=== PATIENT | male | born 1935 | race Caucasian/White ===

== ENCOUNTER 2017-06-19 21:56 | Emergency (ER) | payer OTHER ==
[~2017-06-19] VITALS: Ht 175.3 cm; Wt 112.0 kg
[~2017-06-19 21:56] MED LIST: ATEN-100 PO; GLUCTAB PO; LISI2.5T55 PO; LORTA5 PO; OMEP20TA PO; PERC5TAB12 PO; PRED20 PO; SIMV10TA PO; TRIA1CAP PO; WARF6 PO
[2017-06-19 21:58] VITALS: BP 148/81; PULSE 92; RESP 23; TEMP 97.6; O2SAT 100
[2017-06-19] MEDS ORDERED: OMEP20TA93 PO (22:13)
[2017-06-19] MEDS ORDERED: SIMV10TA PO (22:13)
[2017-06-19] MEDS ORDERED: PRED5TAB PO (22:13)
[2017-06-19] MEDS ORDERED: LISI2.5T3 PO (22:13)
[2017-06-19] MEDS ORDERED: GLIM4TAB PO (22:13)
[2017-06-19] MEDS ORDERED: METO25TA3 PO (22:13)
[2017-06-19] MEDS ORDERED: WARF-20 PO (22:13)
[2017-06-19] MEDS ORDERED: TRIA37.53 PO (22:13)
[2017-06-19 22:15] VITALS: O2SAT 100
[2017-06-19] MEDS ORDERED: oxyCODONE/ACETAMINOPHEN 5 MG/325 MG TAB PO ONE (22:15)
[2017-06-19] MEDS ORDERED: SODIUM CHLORIDE 0.9% FLUSH 10 ML FLUSH IVF PRN (22:15)
[2017-06-19 22:36] LABS: AUTOMATED NEUTROPHIL # 5.2 TH/MM3 (1.8-7.7); BASOPHIL # 0.1 TH/MM3 (0-0.2); BASOPHIL % 0.8 % (0.0-2.0); EOSINOPHIL # 0.2 TH/MM3 (0-0.4); HEMATOCRIT 44.4 % (39.0-51.0); HEMOGLOBIN 15.5 GM/DL (13.0-17.0); LYMPH % 30.1 % (9.0-44.0); LYMPHOCYTE # 2.7 TH/MM3 (1.0-4.8); MEAN CELL VOLUME 83.3 FL (80.0-100.0); MEAN CORPUSCULAR HEMOGLOBIN 29.1 PG (27.0-34.0); MEAN CORPUSCULAR HGB CONC 34.9 % (32.0-36.0); MEAN PLATELET VOLUME 7.5 FL (7.0-11.0); MONO % 8.6 % (0.0-8.0); MONOCYTE # 0.8 TH/MM3 (0-0.9); NEUT % 58.5 % (16.0-70.0); PLATELET COUNT 231 TH/MM3 (150-450); RED BLOOD COUNT 5.33 MIL/MM3 (4.50-5.90); RED CELL DISTRIBUTION WIDTH 14.2 % (11.6-17.2); WHITE BLOOD COUNT 8.9 TH/MM3 (4.0-11.0)
[2017-06-19 22:45] LABS: INTERNATIONAL NORMALIZED RATIO 1.7 RATIO; PROTHROMBIN TIME - PATIENT 17.1 SEC (9.8-11.6)
--- NOTE | 2017-06-19 22:50 | RADRPT ---
EXAM DATE/TIME: 06/19/2017 22:31 [facility] COMPARISON: No previous studies available for comparison. INDICATIONS : Left shoulder pain post fall. MEDICAL HISTORY : None. SURGICAL HISTORY : None. ENCOUNTER: Initial ACUITY: 3 months PAIN SCORE: 4/10 LOCATION: Left shoulder. FINDINGS: Multiple view examination of the left shoulder demonstrates no evidence of fracture or dislocation. There is normal range of motion between internal and external rotation. Bony mineralization is camille l. CONCLUSION: 1. No acute findings. [id number] osteoarthritis of the a.c. joint and shoulder joint. Adan Goodrich MD on June 19, 2017 at 22:47 Board Certified Radiologist. This report was verified electronically.
--- NOTE | 2017-06-19 22:50 | RADRPT ---
EXAM DATE/TIME: 06/19/2017 22:29 [facility] COMPARISON: No previous studies available for comparison. INDICATIONS : Right shoulder pain post fall. MEDICAL HISTORY : None. SURGICAL HISTORY : None. ENCOUNTER: Initial ACUITY: 3 months PAIN SCORE: 4/10 LOCATION: Right shoulder. FINDINGS: There is mild osteoarthritis of the right shoulder joint and right a.c. joint. No acute fracture or d islocation. CONCLUSION: 1. 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 joint. Adan Goodrich MD on June 19, 2017 at 22:44 Board Certified Radiologist. This report was verified electronically.
--- NOTE | 2017-06-19 22:52 | PD ---
HPI . Shoulder pain Chief Complaint: Neuro Symptoms/ Deficits Time Seen by Provider: 22:03 Travel History International Travel<30 days: No Contact w/Intl Traveler<30days: No Traveled to known affect area: No History of Present Illness HPI The patient's chief complaint is bilateral shoulder pain. It is atraumatic. It is exacerbated by movement. It is rated 6/10. The patient states that he awakened the day feeling like his left leg was going to give way. He was subsequently brought here by the family with a chief complaint of left-sided weakness. PFSH Past Medical History Hx Anticoagulant Therapy: Yes (Warfarin) Atrial Fibrillation: Yes Heart Rhythm Problems: Yes (? ) Cancer: No High Cholesterol: Yes Chest Pain: No Congestive Heart Failure: No Diabetes: Yes Patient Takes Glucophage: Yes Endocrine: Yes GERD: Yes Genitourinary: No Hypertension: Yes Musculoskeletal: No Neurologic: No Psychiatric: No Reproductive: No Respiratory: No Thyroid Disease: No Tetanus Vaccination: Unknown Influenza Vaccination: Yes Past Surgical History Abdominal Surgery: No Cardiac Surgery: No Ear Surgery: No Endocrine Surgery: No Eye Surgery: No Genitourinary Surgery: No Hysterectomy: Yes (HTN) Oral Surgery: No Pacemaker: No Thoracic Surgery: No Other Surgery: Yes Social History Alcohol Use: No Tobacco Use: Yes (Smokeless) Substance Use: No Allergies-Medications (Allergen,Severity, Reaction): Coded Allergies: morphine (Unverified Allergy, Intermediate, HALLUCINATIONS, 11/13/16) Reported Meds & Prescriptions Reported Meds & Active Scripts Active Reported Prednisone 5 Mg Tab 5 Mg PO DAILY Metoprolol Tartrate 25 Mg Tab 25 Mg PO DAILY Warfarin 4 Mg Tab 4 Mg PO DAILY Lisinopril 2.5 Mg Tab 2.5 Mg PO DAILY Glimepiride 4 Mg Tab 4 Mg PO DAILY Take with breakfast or first main meal Simvastatin 10 Mg Tab 10 Mg PO DAILY Omeprazole 20 Mg Tab 20 Mg PO DAILY Triamterene-Hydrochlorothiazide 37.5-25 Mg Cap 2 Cap PO DAILY Review of Systems Except as stated in HPI: all other systems reviewed are Neg General / Constitutional: No: Fever, Chills HENT: No: Headaches Cardiovascular: No: Chest Pain or Discomfort Respiratory: No: Shortness of Breath Gastrointestinal: No: Nausea, Vomiting Musculoskeletal: Positive: Arthralgias, Limited ROM Neurologic: No: Weakness, Dizziness, Syncope, Headache, Change in Mentation, Slurred Speech Physical Exam Narrative GENERAL: Awake and alert and in no acute distress. SKIN: warm/dry. Normal color and turgor. HEAD: Normocephalic. Atraumatic. EYES: Pupils equal and round. No scleral icterus. No injection or drainage. ENT: No nasal bleeding or discharge. Mucous membranes pink and moist. NECK: Trachea midline. Full range of motion without pain.. CARDIOVASCULAR: Regular rate and rhythm. He has an irregular rhythm with controlled rate at 97. RESPIRATORY: No accessory muscle use. Clear to auscultation. Breath sounds equal bilaterally. GASTROINTESTINAL: Abdomen soft. Nontender. Bowel sounds present. Nondistended. MUSCULOSKELETAL: No obvious deformities. He does have tenderness to palpation of both shoulders. The overlying skin is not red or hot. He is distally neurovascularly intact. NEUROLOGICAL: Awake and alert. He is able to close his eyes, wrinkle his forehead, smile and protrude his tongue symmetrically. His mercury recoverer strengths are full and equal. Pronator drift is negative. When asked to lift his legs up off the bed he just bends his knees with his feet still on the bed. He does this bilaterally. His muscular strength appears to be equal. PSYCHIATRIC: Appropriate mood and affect; insight and judgment normal. Data Data Last Documented VS Vital Signs Date Time Temp Pulse Resp B/P (MAP) Pulse Ox O2 Delivery O2 Flow Rate FiO2 06/19/17 22:15 100 Room Air 06/19/17 21:58 97.6 92 23 148/81 (103) Orders Orders Complete Blood Count With Diff (06/19/17 22:08) Basic Metabolic Panel (Bmp) (06/19/17 22:08) Creatine Kinase (Cpk) (06/19/17 22:08) Troponin I (06/19/17 22:08) Ct Brain W/O Iv Contrast(Rout) (06/19/17 22:08) Ecg Monitoring (06/19/17 22:08) Iv Access Insert/Monitor (06/19/17 22:08) Oximetry (06/19/17 22:08) Sodium Chloride 0.9% Flush (Ns Flush) (06/19/17 22:15) Prothrombin Time / Inr (Pt) (06/19/17 22:14) Oxycodone-Acetamin 5-325 Mg (Percocet (06/19/17 22:15) Shoulder, Complete (>2vws) (06/19/17 22:15) Shoulder, Complete (>2vws) (06/19/17 22:15) Electrocardiogram (06/19/17 ) Labs Laboratory Tests Test 06/19/17 22:25 White Blood Count 8.9 TH/MM3 Red Blood Count 5.33 MIL/MM3 Hemoglobin 15.5 GM/DL Hematocrit 44.4 % Mean Corpuscular Volume 83.3 FL Mean Corpuscular Hemoglobin 29.1 PG Mean Corpuscular Hemoglobin Concent 34.9 % Red Cell Distribution Width 14.2 % Platelet Count 231 TH/MM3 Mean Platelet Volume 7.5 FL Neutrophils (%) (Auto) 58.5 % Lymphocytes (%) (Auto) 30.1 % Monocytes (%) (Auto) 8.6 % Eosinophils (%) (Auto) 2.0 % Basophils (%) (Auto) 0.8 % Neutrophils # (Auto) 5.2 TH/MM3 Lymphocytes # (Auto) 2.7 TH/MM3 Monocytes # (Auto) 0.8 TH/MM3 Eosinophils # (Auto) 0.2 TH/MM3 Basophils # (Auto) 0.1 TH/MM3 CBC Comment DIFF FINAL Differential Comment Prothrombin Time 17.1 SEC Prothromb Time International Ratio 1.7 RATIO Blood Urea Nitrogen 18 MG/DL Creatinine 1.22 MG/DL Random Glucose 84 MG/DL Calcium Level 9.4 MG/DL Sodium Level 140 MEQ/L Potassium Level 3.8 MEQ/L Chloride Level 103 MEQ/L Carbon Dioxide Level 27.8 MEQ/L Anion Gap 9 MEQ/L Estimat Glomerular Filtration Rate 57 ML/MIN Total Creatine Kinase 117 U/L Troponin I LESS THAN 0.02 NG/ML MDM Medical Decision Making Medical Screen Exam Complete: Yes Emergency Medical Condition: Yes Medical Record Reviewed: Yes (PMH of OA with L TKR, DM, HTN, HL and AF on coumadin) Interpretation(s) EKG shows A. fib with a rate of 97. No acute ischemic changes. Differential Diagnosis Differential diagnosis of joint pain includes but is not limited to arthritis, gout, sprain/strain, fracture, dislocation, bursitis Narrative Course This patient presents to us with a chief complaint of bilateral shoulder pain and feeling like his left leg is going to give out. Chief complaint from the family is left-sided weakness. He does not have any physical signs of a stroke. Last Impressions Shoulder X-Ray 06/19/172214 Signed Impressions: Service Date/Time: Monday, June 19, 2017 22:29 - CONCLUSION: 1. 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 joint. Adan Goodrich MD Shoulder X-Ray 06/19/172214 Signed Impressions: Service Date/Time: Monday, June 19, 2017 22:31 - CONCLUSION: 1. No acute findings. [id number] osteoarthritis of the a.c. joint and shoulder joint. Adan Goodrich MD Head CT 06/19/[id number] Signed Impressions: Service Date/Time: Monday, June 19, 2017 22:58 - CONCLUSION: 1. No acute findings. 2. Age-appropriate atrophy. Jin Toledo MD The shoulder films were independently reviewed by me. The patient's pain has improved with Percocet. CBC & BMP Diagram 06/19/17 22:25 Calcium Level 9.4 trop < 0.02 I believe that this patient's symptoms are secondary to osteoarthritis. I will discharge him to home on Percocet and with instructions to follow-up with his primary care provider for continued management. Nonsteroidal anti-inflammatory agents are not a good idea because he is on Coumadin. Diagnosis Primary Impression: Left leg weakness Additional Impressions: Bilateral shoulder pain Qualified Codes: M25.511 - Pain in right shoulder; M25.512 - Pain in left shoulder; G89.29 - Other chronic pain Osteoarthritis Qualified Codes: M15.0 - Primary generalized (osteo)arthritis Patient Instructions: Arthritis (ED), General Instructions, Narcotic given in the ED Additional Instructions: See your doctor for ongoing care of your arthritis Med/Other Pt SpecificInfo: Prescription(s) given Scripts Oxycodone-Acetaminophen (Percocet) 5-325 mg Tab 1 TAB PO Q4H Y for PAIN, #12 TAB 0 Refills Prov: Delilah Wong MD 06/19/17 Disposition: 01 DISCHARGE HOME Condition: Stable Delilah Wong MD Jun 19, 2017 22:52
[2017-06-19 22:59] LABS: BICARBONATE 27.8 MEQ/L (21.0-32.0); BLOOD UREA NITROGEN 18 MG/DL (7-18); CALCIUM 9.4 MG/DL (8.5-10.1); CHLORIDE 103 MEQ/L (98-107); CREATININE 1.22 MG/DL (0.60-1.30); GLOMERULAR FILTRATION RATE 57 ML/MIN (>89); GLUCOSE,RANDOM 84 MG/DL (74-106); SODIUM (NA) 140 MEQ/L (136-145)
[2017-06-19 23:03] LABS: TROPONIN I LESS THAN 0.02 NG/ML (0.02-0.05)
--- NOTE | 2017-06-19 23:09 | RADRPT ---
EXAM DATE/TIME: 06/19/2017 22:58 [facility] COMPARISON: No previous studies available for comparison. INDICATIONS : Left sided weakness. RADIATION DOSE: 66.34 CTDIvol (mGy) MEDICAL HISTORY : Hypertension. Diabetes. SURGICAL HISTORY : None. ENCOUNTER: Initial ACUITY: 1 day PAIN SCALE: 0/10 LOCATION: cranial TECHNIQUE: Multiple contiguous axial images were obtained of the head. Using automated exposure control and adj ustment of the mA and/or kV according to patient size, radiation dose was kept as low as reasonably a chievable to obtain optimal diagnostic quality images. DICOM format image data is available electro nically for review and comparison. FINDINGS: CEREBRUM: The ventricles are normal for age. No evidence of midline shift, mass lesion, hemorrhage or acute in farction. No extra-axial fluid collections are seen. POSTERIOR FOSSA: The cerebellum and brainstem are intact. The 4th ventricle is midline. The cerebellopontine angle i s unremarkable. EXTRACRANIAL: The visualized portion of the orbits is intact. SKULL: The calvaria is intact. No evidence of skull fracture. CONCLUSION: 1. No acute findings. 2. Age-appropriate atrophy. Jin Toledo MD on June 19, 2017 at 23:06 Board Certified Radiologist. This report was verified electronically.
[2017-06-19] MEDS ORDERED: PERC5TAB12 PO (23:27)
--- NOTE | 2017-06-20 14:17 | EKG ---
Date Performed: 06/19/2017 Time Performed: 22:01:52 PTAGE: 82 years EKG: ATRIAL FIBRILLATION ABNORMAL RHYTHM ECG NO PREVIOUS TRACING DOCTOR: Matthew Osuna Interpretating Date/Time 06/20/2017 14:15:53
== END 2017-06-20 | disposition home or self-care (01) ==
LOC: NEPC 21:56
DX: R53.1 Weakness (principal); M19.012 Primary osteoarthritis, left shoulder; M19.011 Primary osteoarthritis, right shoulder; G89.29 Other chronic pain; I48.91 Unspecified atrial fibrillation; E78.00 Pure hypercholesterolemia, unspecified; E11.9 Type 2 diabetes mellitus without complications; I10 Essential (primary) hypertension; F17.290 Nicotine dependence, other tobacco product, uncomplicated
CPT/HCPCS: 70450; 73030; 80048; 82550; 84484; 85025; 85610; 93005; 99285

== ENCOUNTER 2017-10-22 16:06 | Observation (INO) ==
--- NOTE | 2017-10-22 17:00 | ED ---
HPI General Chief Complaint: Altered Mental Status Stated Complaint: Evac/Ams Time Seen by Provider: 10/22/17 16:52 History of Present Illness HPI narrative: Patient comes emergency department by EMS after being found altered by his after going to the bathroom. This is since resolved. EMS reports patient has been acting without any altered mental status. Patient states that since starting amoxicillin 5 days ago for a cyst on his anterior chest wall is had occasional blurry/double vision and trouble getting his words. He states he did not have any problems with this prior that. Patient reports that he is on Coumadin. Patient denies any head injury, headache, fevers, chest pain, shortness of breath, abdominal pain, loss change in bowel or bladder, or previous episodes like this. Patient states that he is felt more tired recently since starting the amoxicillin. Related Data Home Medications Medication Instructions Recorded Confirmed amoxicillin 500 mg PO BID 10/22/17 10/22/17 glimepiride 4 mg PO QAM 10/22/17 10/22/17 lisinopril 2.5 mg PO DAILY 10/22/17 10/22/17 metoprolol succinate 25 mg PO DAILY 10/22/17 10/22/17 omeprazole 20 mg PO DAILY 10/22/17 10/22/17 simvastatin 10 mg PO QPM 10/22/17 10/22/17 triamterene-hydrochlorothiazid 1 tab PO DAILY 10/22/17 10/22/17 warfarin 4 mg PO DAILY 10/22/17 10/22/17 Allergies Allergy/AdvReac Type Severity Reaction Status Date / Time morphine Allergy Intermediate HALLUCINATI Verified 10/22/17 19:10 ONS Review of Systems Except as stated in HPI: all other systems reviewed are negative PMFSH Medical History Medical History A-fib (Acute) Diabetes (Acute) Heart murmur (Acute) Hernia (Acute) Hypertension (Acute) Surgical History Surgical History H/O: knee surgery (Acute) Social History Social History Substance History: No History of Abuse Second Hand Smoke Exposure: No Smoking Status: Never smoker How Often Do You Have a Drink Containing Alcohol: Never Recent Travel in [facility] within the Last 8 Weeks: No Recent Out of Country Travel within the Last 8 Weeks: No Exam Narrative Exam Narrative: GENERAL: Well-developed, overly nourished, in no acute distress , and non-ill appearing. SKIN: Focused skin assessment warm and dry. HEAD: Atraumatic. Normocephalic. EYES: Pupils equal and round. EOMI. No scleral icterus. No injection or drainage. ENT: No nasal bleeding or discharge. Mucous membranes pink and moist. NECK: Trachea midline. Supple. No nuclear rigidity. CARDIOVASCULAR: Regular rate and rhythm. No murmur appreciated. RESPIRATORY: No accessory muscle use. No respiratory distress. Clear to auscultation. Breath sounds equal bilaterally. GASTROINTESTINAL: Abdomen soft, non-tender, nondistended, and no guarding. Hepatic and splenic margins not palpable. Normal bowel sounds x4. No pulsatile mass. MUSCULOSKELETAL: No obvious deformities. No clubbing. No cyanosis. No edema. Full range of motion. NEUROLOGICAL: Awake and alert. No obvious cranial nerve deficits. Motor grossly within normal limits. Normal speech. No pronator drift. Traffic Signal Technician strength 5 out of 5 and equal bilaterally. Sensation intact and equal bilateral deltoid muscles. Strength 5 out of 5 and equal bilaterally with plantar dorsiflexion. Sensation intact over first webspace in bilateral lower extremities. PSYCHIATRIC: Appropriate mood and affect; insight and judgment normal. Course Consultations Consultation #1: Discussed patient with Dr. Fitzgerald, who is agreeable to admit patient. Time: 19:00 Initial Documented Vital Signs Temperature 98.1 F 10/22/17 17:05 Pulse Rate 67 10/22/17 17:05 Respiratory Rate 19 10/22/17 17:05 Blood Pressure 186/84 H 10/22/17 17:05 Pulse Oximetry 97 10/22/17 17:05 Last Documented Vital Signs Temperature 97.6 F 10/22/17 20:00 Pulse Rate 73 10/22/17 20:00 Respiratory Rate 14 10/22/17 20:00 Blood Pressure 155/91 H 10/22/17 20:00 Pulse Oximetry 95 10/22/17 20:00 Medical Decision Making MDM Narrative Medical decision making narrative: Patient seen and examined. Initial laboratory radiological studies were ordered. IV established patient was placed on continuous cardiac monitoring. 1800 patient daughter at bedside states that patient's mother noticed the patient becoming intermittent confusion and hallucinating ongoing for the past 4 days. States today apparently was worse which is why 911 was called. Reports patient does not appear to be at baseline currently. Discussed all findings and plan of care patient is daughter. Patient is agreeable for admission. Discussed patient with Dr. Kim, who is in agreement plan of care and disposition. Discussed patient with hospitalist is agreeable to admit patient. All questions were answered. Lab Data Lab results reviewed: Yes I reviewed the patient's lab results. Result diagrams: 10/22/17 17:25 10/22/17 17:25 Lab Results 10/22/17 10/22/17 10/22/17 Range/Units 17:25 17:25 17:25 WBC 6.5 (4.0-11.0) th/mm3 RBC 5.19 (4.50-5.90) mil/mm3 Hgb 14.9 (13.0-17.0) gm/dL Hct 43.3 (39.0-51.0) % MCV 83.5 (80.0-100.0) fL MCH 28.8 (27.0-34.0) pg MCHC 34.5 (32.0-36.0) % RDW 14.3 (11.6-17.2) % Plt Count 214 (150-450) th/mm3 MPV 7.2 (7.0-11.0) fL Neut % (Auto) 68.9 (16.0-70.0) % Lymph % (Auto) 19.6 (9.0-44.0) % Elk % (Auto) 7.8 (0.0-8.0) % Eos % (Auto) 2.9 (0.0-4.0) % Baso % (Auto) 0.8 (0.0-2.0) % Neut # (Auto) 4.5 (1.8-7.7) th/mm3 Lymph # (Auto) 1.3 (1.0-4.8) th/mm3 Elk # (Auto) 0.5 (0.0-0.9) th/mm3 Eos # (Auto) 0.2 (0.0-0.4) th/mm3 Baso # (Auto) 0.1 (0.0-0.2) th/mm3 WBC Differential . Differential Comment Auto diff final PT 22.2 H (9.8-11.6) sec INR 2.2 Ratio APTT 36.2 H (24.3-30.1) sec Sodium (136-145) meq/L Potassium (3.5-5.1) meq/L Chloride (98-107) meq/L Carbon Dioxide (21.0-32.0) meq/L Anion Gap (5-15) meq/L BUN (7-18) mg/dL Creatinine (0.60-1.30) mg/dL Estimated GFR (>89) mL/min POC Glucose (68-110) mg/dl Random Glucose (74-106) mg/dL Lactic Acid 0.8 (0.4-2.0) mmol/L Calcium (8.5-10.1) mg/dL Total Bilirubin (0.2-1.0) mg/dL AST (15-37) U/L ALT (12-78) U/L Alkaline Phosphatase (45-117) U/L Ammonia (11-32) mcmol/L Total Creatine Kinase (39-308) U/L Troponin I (0.02-0.05) ng/mL B-Natriuretic Peptide (0-100) pg/mL Total Protein (6.4-8.2) g/dL Albumin (3.4-5.0) g/dL Urine Color (Yellw/Straw) Urine Clarity (Clear) Urine pH (5.0-8.5) Ur Specific Magnolia (1.002-1.035) Urine Protein (Neg-Trace) mg/dL Urine Glucose (UA) (Negative) mg/dL Urine Ketones (Negative) mg/dL Urine Occult Blood (Negative) Urine Nitrate (Negative) Urine Bilirubin (Negative) Urine Urobilinogen (Less than 2) mg/dL Ur Leukocyte Esterase (Negative) Urine RBC (0-3) /hpf Ur Squamous Epith Cells (0-5) /hpf Urine Sperm (None) /hpf Micro UA Comment Urine Culture Comments 10/22/17 10/22/17 10/22/17 Range/Units 17:25 17:25 17:25 WBC (4.0-11.0) th/mm3 RBC (4.50-5.90) mil/mm3 Hgb (13.0-17.0) gm/dL Hct (39.0-51.0) % MCV (80.0-100.0) fL MCH (27.0-34.0) pg MCHC (32.0-36.0) % RDW (11.6-17.2) % Plt Count (150-450) th/mm3 MPV (7.0-11.0) fL Neut % (Auto) (16.0-70.0) % Lymph % (Auto) (9.0-44.0) % Elk % (Auto) (0.0-8.0) % Eos % (Auto) (0.0-4.0) % Baso % (Auto) (0.0-2.0) % Neut # (Auto) (1.8-7.7) th/mm3 Lymph # (Auto) (1.0-4.8) th/mm3 Elk # (Auto) (0.0-0.9) th/mm3 Eos # (Auto) (0.0-0.4) th/mm3 Baso # (Auto) (0.0-0.2) th/mm3 WBC Differential Differential Comment PT (9.8-11.6) sec INR Ratio APTT (24.3-30.1) sec Sodium 143 (136-145) meq/L Potassium 4.1 (3.5-5.1) meq/L Chloride 106 (98-107) meq/L Carbon Dioxide 26.8 (21.0-32.0) meq/L Anion Gap 10 (5-15) meq/L BUN 19 H (7-18) mg/dL Creatinine 1.05 (0.60-1.30) mg/dL Estimated GFR 68 L (>89) mL/min POC Glucose (68-110) mg/dl Random Glucose 81 (74-106) mg/dL Lactic Acid (0.4-2.0) mmol/L Calcium 9.6 (8.5-10.1) mg/dL Total Bilirubin 0.5 (0.2-1.0) mg/dL AST 14 L (15-37) U/L ALT 15 (12-78) U/L Alkaline Phosphatase 82 (45-117) U/L Ammonia 34 H (11-32) mcmol/L Total Creatine Kinase 58 (39-308) U/L Troponin I Less than 0.02 L (0.02-0.05) ng/mL B-Natriuretic Peptide 70 (0-100) pg/mL Total Protein 7.3 (6.4-8.2) g/dL Albumin 3.4 (3.4-5.0) g/dL Urine Color (Yellw/Straw) Urine Clarity (Clear) Urine pH (5.0-8.5) Ur Specific Magnolia (1.002-1.035) Urine Protein (Neg-Trace) mg/dL Urine Glucose (UA) (Negative) mg/dL Urine Ketones (Negative) mg/dL Urine Occult Blood (Negative) Urine Nitrate (Negative) Urine Bilirubin (Negative) Urine Urobilinogen (Less than 2) mg/dL Ur Leukocyte Esterase (Negative) Urine RBC (0-3) /hpf Ur Squamous Epith Cells (0-5) /hpf Urine Sperm (None) /hpf Micro UA Comment Urine Culture Comments 10/22/17 10/22/17 Range/Units 17:43 20:33 WBC (4.0-11.0) th/mm3 RBC (4.50-5.90) mil/mm3 Hgb (13.0-17.0) gm/dL Hct (39.0-51.0) % MCV (80.0-100.0) fL MCH (27.0-34.0) pg MCHC (32.0-36.0) % RDW (11.6-17.2) % Plt Count (150-450) th/mm3 MPV (7.0-11.0) fL Neut % (Auto) (16.0-70.0) % Lymph % (Auto) (9.0-44.0) % Elk % (Auto) (0.0-8.0) % Eos % (Auto) (0.0-4.0) % Baso % (Auto) (0.0-2.0) % Neut # (Auto) (1.8-7.7) th/mm3 Lymph # (Auto) (1.0-4.8) th/mm3 Elk # (Auto) (0.0-0.9) th/mm3 Eos # (Auto) (0.0-0.4) th/mm3 Baso # (Auto) (0.0-0.2) th/mm3 WBC Differential Differential Comment PT (9.8-11.6) sec INR Ratio APTT (24.3-30.1) sec Sodium (136-145) meq/L Potassium (3.5-5.1) meq/L Chloride (98-107) meq/L Carbon Dioxide (21.0-32.0) meq/L Anion Gap (5-15) meq/L BUN (7-18) mg/dL Creatinine (0.60-1.30) mg/dL Estimated GFR (>89) mL/min POC Glucose 74 (68-110) mg/dl Random Glucose (74-106) mg/dL Lactic Acid (0.4-2.0) mmol/L Calcium (8.5-10.1) mg/dL Total Bilirubin (0.2-1.0) mg/dL AST (15-37) U/L ALT (12-78) U/L Alkaline Phosphatase (45-117) U/L Ammonia (11-32) mcmol/L Total Creatine Kinase (39-308) U/L Troponin I (0.02-0.05) ng/mL B-Natriuretic Peptide (0-100) pg/mL Total Protein (6.4-8.2) g/dL Albumin (3.4-5.0) g/dL Urine Color Yellow (Yellw/Straw) Urine Clarity Cloudy H (Clear) Urine pH 5.0 (5.0-8.5) Ur Specific Magnolia 1.019 (1.002-1.035) Urine Protein 30 H (Neg-Trace) mg/dL Urine Glucose (UA) Negative (Negative) mg/dL Urine Ketones Negative (Negative) mg/dL Urine Occult Blood Small H (Negative) Urine Nitrate Negative (Negative) Urine Bilirubin Negative (Negative) Urine Urobilinogen 2.0 H (Less than 2) mg/dL Ur Leukocyte Esterase Negative (Negative) Urine RBC 15 H (0-3) /hpf Ur Squamous Epith Cells 2 (0-5) /hpf Urine Sperm Many H (None) /hpf Micro UA Comment Culture not ind Urine Culture Comments Culture not ind Imaging Data Radiologist's impression: Chest X-Ray 10/22/17 17:00 CONCLUSION: No acute cardiopulmonary disease. Head CT 10/22/17 17:00 CONCLUSION: 1. Stable negative examination with no intracranial hemorrhage or mass effect. ECG Data Interpretation: EKG reviewed by Dr. Kim shows A. fib with ventricular rate of 59. No STEMI. Discharge Plan Discharge Disposition Patient Disposition: 30 Still Patient Discharge Details Diagnosis: TIA (transient ischemic attack), Delirium Physicians Team ED Provider: Dev Kim ED Midlevel Provider: Roney Wolfe Primary Care Provider: Aleena Demarco Attending Provider: Lyly Fitzgerald Other Providers: Akua Castro ; Armando Soriano ED Status: Left Department Discharge Information Discharge Date/Time: 10/22/17 20:21
--- NOTE | 2017-10-22 17:37 | XR ---
EXAM DATE: 10/22/2017 5:33 PM EDT AGE/SEX: 82 years / Male INDICATIONS: Dyspnea. CLINICAL DATA: This is the patient's initial encounter. Patient reports that signs and symptoms have been present for 1 day and indicates a pain score of 0/10. MEDICAL/SURGICAL HISTORY: Hypertension. Diabetes mellitus type I. None. COMPARISON: No prior exams available for comparison. FINDINGS: A single AP erect portable view the chest was obtained. This demonstrates no confluent infiltrates or effusions. The heart size is at the upper limits of normal. There is no pulmonary edema. There is an old healed right posterior rib fracture. The bony thorax is intact. CONCLUSION: No acute cardiopulmonary disease. Electronically signed by: Facundo Duran MD 10/22/2017 5:35 PM EDT
[2017-10-22 17:46] LABS: Baso # (Auto) 0.1 th/mm3 (0.0-0.2); Baso % (Auto) 0.8 % (0.0-2.0); Eos # (Auto) 0.2 th/mm3 (0.0-0.4); Eos % (Auto) 2.9 % (0.0-4.0); Hematocrit 43.3 % (39.0-51.0); Hemoglobin 14.9 gm/dL (13.0-17.0); Lymph # (Auto) 1.3 th/mm3 (1.0-4.8); Lymph % (Auto) 19.6 % (9.0-44.0); Mean Corpuscular HGB Conc 34.5 % (32.0-36.0); Mean Corpuscular Hemoglobin 28.8 pg (27.0-34.0); Mean Corpuscular Volume 83.5 fL (80.0-100.0); Mean Platelet Volume 7.2 fL (7.0-11.0); Mono # (Auto) 0.5 th/mm3 (0.0-0.9); Mono % (Auto) 7.8 % (0.0-8.0); Neut # (Auto) 4.5 th/mm3 (1.8-7.7); Neut % (Auto) 68.9 % (16.0-70.0); Platelet Count 214 th/mm3 (150-450); Red Blood Count 5.19 mil/mm3 (4.50-5.90); Red Cell Distribution Width 14.3 % (11.6-17.2); White Blood Count 6.5 th/mm3 (4.0-11.0)
--- NOTE | 2017-10-22 17:56 | CT ---
EXAM DATE: 10/22/2017 5:53 PM EDT AGE/SEX: 82 years / Male INDICATIONS: Altered mental status CLINICAL DATA: This is the patient's initial encounter. Patient reports that signs and symptoms have been present for 1 day and indicates a pain score of 0/10. MEDICAL/SURGICAL HISTORY: Hypertension. Cardiovascular disease. . orthopedic RADIATION DOSE: 56.35 CTDI (mGy) COMPARISON: [facility] [place], CT BRAIN W/O CONTRAST, 06/19/2017. . TECHNIQUE: CT of the head without contrast. Using automated exposure control and adjustment of the mA and/or kV according to patient size, radiation dose was kept as low as reasonably achievable to ob tain optimal diagnostic quality images. DICOM format image data is available electronically for revi ew and comparison. FINDINGS: Cerebrum: The ventricles are normal for age with diffuse atrophic change. No evidence of midline yonis ft, mass lesion, hemorrhage or acute infarction. No extraaxial fluid collections are seen. Posterior Fossa: The cerebellum and brainstem are intact. The 4th ventricle is midline. The cerebe llopontine angle is unremarkable. Extracranial: The visualized portion of the orbits is intact. There is a small retention cyst in the right maxillary sinus. Skull: The calvaria is intact. No evidence of skull fracture. CONCLUSION: 1. Stable negative examination with no intracranial hemorrhage or mass effect. Electronically signed by: Facundo Duran MD 10/22/2017 5:55 PM EDT
[2017-10-22 18:05] LABS: Activated Partial Thrombo Time 36.2 sec (24.3-30.1); INR 2.2 Ratio; Prothrombin Time 22.2 sec (9.8-11.6)
[2017-10-22 18:09] LABS: Albumin 3.4 g/dL (3.4-5.0); Anion Gap 10 meq/L (5-15); Aspartate Aminotransferase 14 U/L (15-37); Blood Urea Nitrogen 19 mg/dL (7-18); Calcium 9.6 mg/dL (8.5-10.1); Carbon Dioxide 26.8 meq/L (21.0-32.0); Chloride 106 meq/L (98-107); Glomerular Filtration Rate 68 mL/min (>89); Glucose,Random 81 mg/dL (74-106); Potassium 4.1 meq/L (3.5-5.1); Sodium 143 meq/L (136-145)
[2017-10-22 18:10] LABS: Alanine Aminotransferase 15 U/L (12-78)
[2017-10-22 18:13] LABS: Bilirubin,Urine Negative (Negative); Clarity,Urine Cloudy (Clear); Color,Urine Yellow (Yellw/Straw); Glucose,Urine (UA) Negative (Negative); Leukocyte Esterase,Urine Negative (Negative); Nitrite,Urine Negative (Negative); Specific Gravity,Urine 1.019 (1.002-1.035); Sperm,Urine Many /hpf; Squamous Epithelial Cell,Urine 2 /hpf (0-5)
[2017-10-22 18:14] LABS: Alkaline Phosphatase 82 U/L (45-117); Total Protein 7.3 g/dL (6.4-8.2)
[2017-10-22 18:28] LABS: Creatine Kinase 58 U/L (39-308)
[2017-10-22] MEDS ORDERED: Dextrose 50% in Water 50 ML Vial IV.PUSH PRN (19:33)
--- NOTE | 2017-10-22 19:44 | P.HP ---
History of Present Illness Service: [facility] Primary Care Physician: Aleena Demarco MD History of Present Illness: 82-year-old male with a past medical history significant for atrial fibrillation anticoagulated on Coumadin, hypertension and diabetes mellitus presents to the emergency department for the evaluation of altered mental status. The patient's provides the history. She reports that they saw his primary care doctor on which was the last time the patient was seen normal. He was prescribed amoxicillin for an infected cyst on his chest that has been present for years. The patient then developed anorexia and fatigue later that day. Per the , the patient will not eat and does not want to get out of bed. Yesterday he began having visual hallucinations thinking that someone was in the bathroom or being disoriented and confused about where he is and what floor he is on. During her interview the patient is alert and oriented to person, and place. He does not know the year. He denies any pain. No chest pain or shortness of breath. No abdominal pain. No nausea/ vomiting/diarrhea. No fevers/chills. Review of Systems All other systems reviewed negative except as stated in HPI PMFSH - History History Provided By: Patient, Family Member - Medical History Medical History: Medical History (Last Updated 10/22/17 @ 19:36 by Lyly Fitzgerald MD) A-fib Diabetes Heart murmur Hernia Hypertension - Surgical History Surgical History: Surgical History (Last Updated 10/22/17 @ 19:36 by Lyly Fitzgerald MD) H/O: knee surgery - Tobacco History Second Hand Smoke Exposure: No Smoking Status: Never smoker - Alcohol History How Often Do You Have a Drink Containing Alcohol: Never - Substance Use History Substance History: No History of Abuse - Travel History Recent Travel in the [place] Within the Last 8 Weeks: No Recent Travel Out of the Country Within the Last 8 Weeks: No - Immunization History Tetanus Immunization: Unsure Hx Influenza Vaccine This Season: Yes Medications and Allergies Active Medications: Active Medications Dextrose (D50w Vial) 50 ml IV.PUSH UNSCH PRN PRN Reason: PER HYPOGLYCEMIA PROTOCOL Glucagon (Glucagon Inj) 1 mg OTHER PRN PRN PRN Reason: for Hypoglycemia Protocol Heparin Sodium (Porcine) (Heparin Inj) 5,000 units SQ Q8H AISLINN Sodium Chloride (Ns Inj) 1,000 mls @ 70 mls/hr IV.CONT .[id number] AISLINN Insulin Human Regular (Novolin R Correctional Sugar Inj) 0 units SQ ACHS AND 3AM AISLINN; Protocol Sodium Chloride (Ns Flush) 2 ml IV.FLUSH PRN PRN PRN Reason: FLUSH AFTER USING IV ACCESS Sodium Chloride (Ns Flush) 2 ml IV.FLUSH BID AISLINN Sodium Chloride (Ns Flush) 2 ml IV.FLUSH PRN PRN PRN Reason: FLUSH AFTER USING IV ACCESS Allergies Allergy/AdvReac Type Severity Reaction Status Date / Time morphine Allergy Intermediate HALLUCINATI Verified 10/22/17 19:10 ONS Home Medications Medication Instructions Recorded Confirmed Type amoxicillin 500 mg PO BID 10/22/17 10/22/17 History glimepiride 4 mg PO QAM 10/22/17 10/22/17 History lisinopril 2.5 mg PO DAILY 10/22/17 10/22/17 History metoprolol succinate 25 mg PO DAILY 10/22/17 10/22/17 History omeprazole 20 mg PO DAILY 10/22/17 10/22/17 History simvastatin 10 mg PO QPM 10/22/17 10/22/17 History triamterene-hydrochlorothiazid 1 tab PO DAILY 10/22/17 10/22/17 History warfarin 4 mg PO DAILY 10/22/17 10/22/17 History Exam Vital signs: Vital Signs 10/22/17 17:05 10/22/17 19:12 10/22/17 19:13 Temperature 98.1 F Pulse Rate 67 Respiratory Rate 19 Blood Pressure 186/84 H Pulse Oximetry 97 98 98 Intake & Output 10/22/17 10/22/17 10/23/17 06:59 18:59 06:59 Weight 107.048 kg Narrative: Gen.: No acute distress Head: Normocephalic. Atraumatic. EENT: Pupils equal round and reactive to light. Nose without drainage. Airway intact. Throat without injection. Cardiovascular: Regular rate and irregularly irregular rhythm. 3/6 URIEL Respiratory: Lungs clear to auscultation bilaterally. No wheezes or rhonchi. Abdomen: Soft, nontender, nondistended. No peritoneal signs. Musculoskeletal: No gross deformities. No edema. Skin: No obvious rashes or erythema. Neuro: Sensory intact. Cranial nerves II through XII intact. Bilateral strength 5/5 in all extremities including hand storm window installer. Finger to nose with tremor and unable to complete task as patient not able to touch finger. Follows commands. Alert and oriented to location and self, others. Heel to pitt intact. Results - Labs CBC & Chem 7: 10/22/17 17:25 10/22/17 17:25 Labs: Laboratory Results - last 24 hr 10/22/17 10/22/17 10/22/17 17:25 17:25 17:25 WBC 6.5 RBC 5.19 Hgb 14.9 Hct 43.3 MCV 83.5 MCH 28.8 MCHC 34.5 RDW 14.3 Plt Count 214 MPV 7.2 Neut % (Auto) 68.9 Lymph % (Auto) 19.6 [place] % (Auto) 7.8 Eos % (Auto) 2.9 Baso % (Auto) 0.8 Neut # (Auto) 4.5 Lymph # (Auto) 1.3 [place] # (Auto) 0.5 Eos # (Auto) 0.2 Baso # (Auto) 0.1 WBC Differential . Differential Comment Auto diff final PT 22.2 H INR 2.2 APTT 36.2 H Sodium Potassium Chloride Carbon Dioxide Anion Gap BUN Creatinine Estimated GFR Random Glucose Lactic Acid 0.8 Calcium Total Bilirubin AST ALT Alkaline Phosphatase Ammonia Total Creatine Kinase Troponin I B-Natriuretic Peptide Total Protein Albumin Urine Color Urine Clarity Urine pH Ur Specific [place] Urine Protein Urine Glucose (UA) Urine Ketones Urine Occult Blood Urine Nitrate Urine Bilirubin Urine Urobilinogen Ur Leukocyte Esterase Urine RBC Ur Squamous Epith Cells Urine Sperm Micro UA Comment Urine Culture Comments 10/22/17 10/22/17 10/22/17 17:25 17:25 17:25 WBC RBC Hgb Hct MCV MCH MCHC RDW Plt Count MPV Neut % (Auto) Lymph % (Auto) [place] % (Auto) Eos % (Auto) Baso % (Auto) Neut # (Auto) Lymph # (Auto) [place] # (Auto) Eos # (Auto) Baso # (Auto) WBC Differential Differential Comment PT INR APTT Sodium 143 Potassium 4.1 Chloride 106 Carbon Dioxide 26.8 Anion Gap 10 BUN 19 H Creatinine 1.05 Estimated GFR 68 L Random Glucose 81 Lactic Acid Calcium 9.6 Total Bilirubin 0.5 AST 14 L ALT 15 Alkaline Phosphatase 82 Ammonia 34 H Total Creatine Kinase 58 Troponin I Less than 0.02 L B-Natriuretic Peptide 70 Total Protein 7.3 Albumin 3.4 Urine Color Urine Clarity Urine pH Ur Specific [place] Urine Protein Urine Glucose (UA) Urine Ketones Urine Occult Blood Urine Nitrate Urine Bilirubin Urine Urobilinogen Ur Leukocyte Esterase Urine RBC Ur Squamous Epith Cells Urine Sperm Micro UA Comment Urine Culture Comments 10/22/17 17:43 WBC RBC Hgb Hct MCV MCH MCHC RDW Plt Count MPV Neut % (Auto) Lymph % (Auto) [place] % (Auto) Eos % (Auto) Baso % (Auto) Neut # (Auto) Lymph # (Auto) [place] # (Auto) Eos # (Auto) Baso # (Auto) WBC Differential Differential Comment PT INR APTT Sodium Potassium Chloride Carbon Dioxide Anion Gap BUN Creatinine Estimated GFR Random Glucose Lactic Acid Calcium Total Bilirubin AST ALT Alkaline Phosphatase Ammonia Total Creatine Kinase Troponin I B-Natriuretic Peptide Total Protein Albumin Urine Color Yellow Urine Clarity Cloudy H Urine pH 5.0 Ur Specific [place] 1.019 Urine Protein 30 H Urine Glucose (UA) Negative Urine Ketones Negative Urine Occult Blood Small H Urine Nitrate Negative Urine Bilirubin Negative Urine Urobilinogen 2.0 H Ur Leukocyte Esterase Negative Urine RBC 15 H Ur Squamous Epith Cells 2 Urine Sperm Many H Micro UA Comment Culture not ind Urine Culture Comments Culture not ind - Imaging Impressions Chest X-Ray 10/22/17 17:00 CONCLUSION: No acute cardiopulmonary disease. Head CT 10/22/17 17:00 CONCLUSION: 1. Stable negative examination with no intracranial hemorrhage or mass effect. Caprini VTE Risk Assessment Caprini VTE Risk Assessment: Moderate/High Risk (score >= 2) Caprini Risk Assessment Model: Point Value = 1 Point Value = 2 Point Value = 3 Point Value = 5 Age 41-60 Minor surgery BMI > 25 kg/m2 Swollen legs Varicose veins or History of unexplained or recurrent spontaneous Oral contraceptives or hormone replacement Sepsis (< 1 month) Serious lung disease, including pneumonia (< 1 month) Abnormal pulmonary function Acute myocardial infarction Congestive heart failure (< 1 month) History of inflammatory bowel disease Medical patient at bed rest Age 61-74 Arthroscopic surgery Major open surgery (> 45 min) Laparoscopic surgery (> 45 min) Malignancy Confined to bed (> 72 hours) Immobilizing plaster cast Central venous access Age >= 75 History of VTE Family history of VTE Factor V Leiden Prothrombin [id number] Lupus anticoagulant Anticardiolipin antibodies Elevated serum homocysteine Heparin-induced thrombocytopenia Other congenital or acquired thrombophilia Stroke (< 1 month) Elective arthroplasty Hip, pelvis, or leg fracture Acute spinal cord injury (< 1 month) Prophylaxis Regimen: Total Risk Factor Score Risk Level Prophylaxis Regimen 0-1 Low Early ambulation 2 Moderate Order ONE of the following: *Sequential Compression Device (SCD) *Heparin 5000 units SQ BID 3-4 Higher Order ONE of the following medications: *Heparin 5000 units SQ TID *Enoxaparin/Lovenox 40 mg SQ daily (WT < 150 kg, CrCl > 30 mL/min) *Enoxaparin/Lovenox 30 mg SQ daily (WT < 150 kg, CrCl > 10-29 mL/min) *Enoxaparin/Lovenox 30 mg SQ BID (WT < 150 kg, CrCl > 30 mL/min) AND/OR *Sequential Compression Device (SCD) 5 or more Highest Order ONE of the following medications: *Heparin 5000 units SQ TID (Preferred with Epidurals) *Enoxaparin/Lovenox 40 mg SQ daily (WT < 150 kg, CrCl > 30 mL/min) *Enoxaparin/Lovenox 30 mg SQ daily (WT < 150 kg, CrCl > 10-29 mL/min) *Enoxaparin/Lovenox 30 mg SQ BID (WT < 150 kg, CrCl > 30 mL/min) AND *Sequential Compression Device (SCD) Assessment and Plan - Plan Assessment/plan: 1. Ischemic stroke versus TIA CT head negative for acute process MRI/MRA pending Carotid ultrasound pending Patient with neurologic symptoms at this time Neurology consulted, appreciate recommendations Neuro checks N.p.o. Aspirin 2. Atrial fibrillation Continue anticoagulation with warfarin Continue home metoprolol 3. Hypertension Permissive hypertension Resume antihypertensives if needed 4. Diabetes mellitus Holding home antihyperglycemic Sliding-scale insulin Monitor blood glucose FEN N.p.o. NS at 70 cc/hour Electrolytes: Monitor and replete as needed Coumadin
[2017-10-22] MEDS ORDERED: Aspirin 300 MG Supp RECTAL ONE (20:15)
[2017-10-22] MEDS: Insulin NovoLIN Regular Correctional Sugar Inj SQ SCH (20:45)
[2017-10-22] MEDS: Sod Chloride 0.9% Inj 1,000 ML IV.CONT SCH (21:01)
[2017-10-22] MEDS: Heparin - SQ 10,000 UNITS/ML Vial SQ SCH (21:02)
--- NOTE | 2017-10-22 22:45 | US ---
EXAM DATE: 10/22/2017 10:40 PM EDT AGE/SEX: 82 years / Male INDICATIONS: Altered mental status. CLINICAL DATA: This is the patient's initial encounter. Patient reports that signs and symptoms have been present for 4 - 6 days and indicates a pain score of 0/10. MEDICAL/SURGICAL HISTORY: Diabetes. Hypertension. A-fib. Hernia. . Knee surgery. COMPARISON: No prior exams available for comparison. VELOCITY PARAMETERS: ICA/CCA Ratio: Right 1.1 , Left 0.8 ICA: Right 81 cm/sec, Left 59 cm/sec CCA: Right 77 cm/sec, Left 77 cm/sec ECA: Right 78 cm/sec, Left 59 cm/sec Vertebral: Right 31 cm/sec antegrade, Left 37 cm/sec antegrade FINDINGS: Right Carotid: No significant plaque is visualized.The waveforms are within normal limits. Left Carotid: No significant plaque is visualized. The waveforms are within normal limits. Other: None. CONCLUSION: No significant stenosis is seen. Electronically signed by: Fernando Wells MD 10/22/2017 10:43 PM EDT
[2017-10-23] MEDS: Insulin NovoLIN Regular Correctional Sugar Inj SQ SCH ×5 (05:18→20:25)
[2017-10-23] MEDS: Heparin - SQ 10,000 UNITS/ML Vial SQ SCH (06:28)
--- NOTE | 2017-10-23 06:29 | P.PN ---
Subjective Interval history: F/U AMS. Patient remains confused with hallucinations. Discussed with family, patient has sleep apnea not using CPAP. He was given a prescription for antianxiety about 2 weeks ago. Daughter is trying to obtain medication information. Physical Exam Vital signs: Vital Signs 10/22/17 17:05 10/22/17 19:12 10/22/17 19:13 Temperature 98.1 F Pulse Rate 67 Respiratory Rate 19 Blood Pressure 186/84 H Pulse Oximetry 97 98 98 10/22/17 20:00 10/23/17 00:00 10/23/17 04:00 Temperature 97.6 F 98.3 F 98.1 F Pulse Rate 73 63 64 Respiratory Rate 14 17 17 Blood Pressure 155/91 H 179/86 H 99/63 L Pulse Oximetry 95 95 93 L 10/23/17 05:00 Temperature Pulse Rate 82 Respiratory Rate Blood Pressure Pulse Oximetry Intake & Output 10/22/17 10/22/17 10/23/17 06:59 18:59 06:59 Weight 107.048 kg Other: Date of Last Bowel Movement 10/22/17 Narrative: Gen.: No acute distress Cardiovascular: Regular rate and irregularly irregular rhythm. 3/6 URIEL Respiratory: Lungs clear to auscultation bilaterally. No wheezes or rhonchi. Abdomen: Soft, nontender, nondistended. No peritoneal signs. Musculoskeletal: No gross deformities. No edema. Skin: No obvious rashes or erythema. Neuro: Sensory intact. Cranial nerves II through XII intact. Bilateral strength 5/5 in all extremities including hand park aide. Finger to nose with tremor and unable to complete task as patient not able to touch finger. Follows commands. Alert and oriented to self, others. Heel to pitt intact. Results - Labs CBC & Chem 7: 10/22/17 17:25 10/22/17 17:25 Laboratory Results - last 24 hr 10/22/17 10/22/17 10/22/17 17:25 17:25 17:25 WBC 6.5 RBC 5.19 Hgb 14.9 Hct 43.3 MCV 83.5 MCH 28.8 MCHC 34.5 RDW 14.3 Plt Count 214 MPV 7.2 Neut % (Auto) 68.9 Lymph % (Auto) 19.6 [place] % (Auto) 7.8 Eos % (Auto) 2.9 Baso % (Auto) 0.8 Neut # (Auto) 4.5 Lymph # (Auto) 1.3 [place] # (Auto) 0.5 Eos # (Auto) 0.2 Baso # (Auto) 0.1 WBC Differential . Differential Comment Auto diff final PT 22.2 H INR 2.2 APTT 36.2 H Sodium Potassium Chloride Carbon Dioxide Anion Gap BUN Creatinine Estimated GFR POC Glucose Random Glucose Lactic Acid 0.8 Calcium Total Bilirubin AST ALT Alkaline Phosphatase Ammonia Total Creatine Kinase Troponin I B-Natriuretic Peptide Total Protein Albumin Urine Color Urine Clarity Urine pH Ur Specific [place] Urine Protein Urine Glucose (UA) Urine Ketones Urine Occult Blood Urine Nitrate Urine Bilirubin Urine Urobilinogen Ur Leukocyte Esterase Urine RBC Ur Squamous Epith Cells Urine Sperm Micro UA Comment Urine Culture Comments 10/22/17 10/22/17 10/22/17 17:25 17:25 17:25 WBC RBC Hgb Hct MCV MCH MCHC RDW Plt Count MPV Neut % (Auto) Lymph % (Auto) [place] % (Auto) Eos % (Auto) Baso % (Auto) Neut # (Auto) Lymph # (Auto) [place] # (Auto) Eos # (Auto) Baso # (Auto) WBC Differential Differential Comment PT INR APTT Sodium 143 Potassium 4.1 Chloride 106 Carbon Dioxide 26.8 Anion Gap 10 BUN 19 H Creatinine 1.05 Estimated GFR 68 L POC Glucose Random Glucose 81 Lactic Acid Calcium 9.6 Total Bilirubin 0.5 AST 14 L ALT 15 Alkaline Phosphatase 82 Ammonia 34 H Total Creatine Kinase 58 Troponin I Less than 0.02 L B-Natriuretic Peptide 70 Total Protein 7.3 Albumin 3.4 Urine Color Urine Clarity Urine pH Ur Specific [place] Urine Protein Urine Glucose (UA) Urine Ketones Urine Occult Blood Urine Nitrate Urine Bilirubin Urine Urobilinogen Ur Leukocyte Esterase Urine RBC Ur Squamous Epith Cells Urine Sperm Micro UA Comment Urine Culture Comments 10/22/17 10/22/17 10/23/17 17:43 20:33 02:56 WBC RBC Hgb Hct MCV MCH MCHC RDW Plt Count MPV Neut % (Auto) Lymph % (Auto) [place] % (Auto) Eos % (Auto) Baso % (Auto) Neut # (Auto) Lymph # (Auto) [place] # (Auto) Eos # (Auto) Baso # (Auto) WBC Differential Differential Comment PT INR APTT Sodium Potassium Chloride Carbon Dioxide Anion Gap BUN Creatinine Estimated GFR POC Glucose 74 59 L Random Glucose Lactic Acid Calcium Total Bilirubin AST ALT Alkaline Phosphatase Ammonia Total Creatine Kinase Troponin I B-Natriuretic Peptide Total Protein Albumin Urine Color Yellow Urine Clarity Cloudy H Urine pH 5.0 Ur Specific [place] 1.019 Urine Protein 30 H Urine Glucose (UA) Negative Urine Ketones Negative Urine Occult Blood Small H Urine Nitrate Negative Urine Bilirubin Negative Urine Urobilinogen 2.0 H Ur Leukocyte Esterase Negative Urine RBC 15 H Ur Squamous Epith Cells 2 Urine Sperm Many H Micro UA Comment Culture not ind Urine Culture Comments Culture not ind - Imaging ITS Impressions Carotid Doppler Study 10/22/17 00:00 CONCLUSION: No significant stenosis is seen. Chest X-Ray 10/22/17 17:00 CONCLUSION: No acute cardiopulmonary disease. Head CT 10/22/17 17:00 CONCLUSION: 1. Stable negative examination with no intracranial hemorrhage or mass effect. Shoulder X-Ray 10/23/17 00:00 CONCLUSION: Head MRI 10/23/17 19:31 CONCLUSION: 1. Suboptimal examination secondary to motion artifact. 2. No evidence of acute hemorrhage, mass or infarction. 3. Mild age-appropriate atrophic change. Head MRA 10/23/17 19:31 CONCLUSION: Limited examination secondary to motion with potentially significant intracranial vascular disease involving both the anterior posterior circulation. Bolus infused CT angiography of the brain is recommended for further evaluation. - Procedures none Assessment and Plan - Assessment (1) Delirium Code(s): R41.0 - Disorientation, unspecified Status: Acute - Plan 1. Encephalopathy etiology not clear could be toxic CT head negative for acute process MRI/MRA negative, check EEG and UDS. Family to obtain new med pt was taking. Med rec reviewed Carotid ultrasound negative Patient with neurologic symptoms at this time Neurology consulted, appreciate recommendations Neuro checks PT and ST eval Aspirin 2. Atrial fibrillation Continue anticoagulation with warfarin Continue home metoprolol 3. Hypertension Resume antihypertensives 4. Diabetes mellitus Holding home antihyperglycemic Sliding-scale insulin Monitor blood glucose FEN Cardiac diet NS at 70 cc/hour dc if tolerating po Electrolytes: Monitor and replete as needed Coumadin
[2017-10-23] MEDS ORDERED: Warfarin Consult Pharmacy 1 EACH OTHER SCH (07:00)
[2017-10-23 09:28] LABS: Chol/HDL Ratio 3.1 Ratio; HDL Cholesterol 31.6 mg/dL (40.0-60.0)
--- NOTE | 2017-10-23 10:06 | P.CONNEU ---
History of Present Illness Service: Neurology Consult date: 10/23/17 Requesting Physician: Lyly Fitzgerald Reason for Consult: Altered mental status Primary Care Provider: Aleena Demarco MD Family Provider: Aleena Demarco MD Chief Complaint: Altered mental status History of Present Illness: 82 y/o male with hx of A-fib brought to ER by his family due to increased confusion. He saw his PCP on for an infected cyst and started on antibiotics. Yesterday pt began developing hallucinations, seeing animals and objects that were not there. His daughter reports he has been telling stories about things that have happened in the past and is confused on time as he feels like they have happened recently. His daughter reports memory has been good up until this time and that he has no difficulty with short term memory and has never had hallucinations before. He is currently on Coumadin for his a-fib. She reports he hallucinated all night and tried to pull his IV out as he thought he was about to be in a car crash. No hx of stroke or seizure. He is complaining of right shoulder pain and weakness in his right arm due to the pain. His daughter thinks he has had some falls but unsure when the last was and if he hit his head. Review of Systems All other systems reviewed negative except as stated in HPI PMFSH - History History Provided By: Patient, Significant Other - Medical History Medical History: Medical History (Last Reviewed 10/23/17 @ 09:16 by Maral Bhatt) A-fib Diabetes Heart murmur Hernia Hypertension - Surgical History Surgical History: Surgical History (Last Reviewed 10/23/17 @ 09:16 by Maral Bhatt) H/O: knee surgery - Tobacco History Second Hand Smoke Exposure: No Tobacco Use In Past 30 Days: Yes Smoking Status: Current every day smoker Tobacco Type: Smokeless Tobacco - Alcohol History How Often Do You Have a Drink Containing Alcohol: Never - Substance Use History Substance History: No History of Abuse - Travel History Recent Travel in the [place] Within the Last 8 Weeks: No Recent Travel Out of the Country Within the Last 8 Weeks: No - Immunization History Tetanus Immunization: >5 Years Hx Influenza Vaccine This Season: Yes Medications and Allergies Allergies Allergy/AdvReac Type Severity Reaction Status Date / Time morphine Allergy Intermediate HALLUCINATI Verified 10/22/17 19:10 ONS Home Medications Medication Instructions Recorded Confirmed Type amoxicillin 500 mg PO BID 10/22/17 10/22/17 History glimepiride 4 mg PO QAM 10/22/17 10/22/17 History lisinopril 2.5 mg PO DAILY 10/22/17 10/22/17 History metoprolol succinate 25 mg PO DAILY 10/22/17 10/22/17 History omeprazole 20 mg PO DAILY 10/22/17 10/22/17 History simvastatin 10 mg PO QPM 10/22/17 10/22/17 History triamterene-hydrochlorothiazid 1 tab PO DAILY 10/22/17 10/22/17 History warfarin 4 mg PO DAILY 10/22/17 10/22/17 History Active Medications: Active Medications Dextrose (D50w Vial) 50 ml IV.PUSH UNSCH PRN PRN Reason: PER HYPOGLYCEMIA PROTOCOL Enalaprilat (Vasotec Inj) 1.25 mg IV.PUSH Q6H PRN PRN Reason: SBP>180, DBP>110 Last Admin: 10/23/17 02:46 Dose: 1.25 mg Glucagon (Glucagon Inj) 1 mg OTHER PRN PRN PRN Reason: for Hypoglycemia Protocol Sodium Chloride (Ns Inj) 1,000 mls @ 70 mls/hr IV.CONT .[id number] FOR[facility], [facility] Last Admin: 10/22/17 21:01 Dose: 70 mls/hr Pharmacy Profile Note (Coumadin Consult Pharmacy) 0 mls @ 0 mls/hr OTHER UNSCH FORMERLY [facility], [facility]1983 Insulin Human Regular (Novolin R Correctional Sugar Inj) 0 units SQ ACHS AND 3AM AISLINN; Protocol Last Admin: 10/23/17 09:07 Dose: Not Given Metoprolol Succinate (Toprol Xl) 25 mg PO DAILY FOR[facility]LY [facility], [facility] Last Admin: 10/23/17 09:43 Dose: 25 mg Patient Medication Teaching (Coumadin Booklet) 1 each OTHER ONCE ONE Stop: 10/23/17 16:01 Pravastatin Sodium (Pravachol) 20 mg PO QPM FOR[facility], [facility]1983 Sodium Chloride (Ns Flush) 2 ml IV.FLUSH BID FOR[facility], [facility] Last Admin: 10/23/17 09:43 Dose: Not Given Sodium Chloride (Ns Flush) 2 ml IV.FLUSH PRN PRN PRN Reason: FLUSH AFTER USING IV ACCESS Warfarin Sodium (Coumadin) 4 mg PO DAILY@1600 FOR[facility], [facility]1983 Exam Vital signs: Vital Signs 10/22/17 17:05 10/22/17 19:12 10/22/17 19:13 Temperature 98.1 F Pulse Rate 67 Respiratory Rate 19 Blood Pressure 186/84 H Pulse Oximetry 97 98 98 10/22/17 20:00 10/23/17 00:00 10/23/17 04:00 Temperature 97.6 F 98.3 F 98.1 F Pulse Rate 73 63 64 Respiratory Rate 14 17 17 Blood Pressure 155/91 H 179/86 H 99/63 L Pulse Oximetry 95 95 93 L 10/23/17 05:00 10/23/17 08:00 Temperature 98.0 F Pulse Rate 82 80 Respiratory Rate 18 Blood Pressure 120/68 Pulse Oximetry 94 L Intake & Output 10/22/17 10/23/17 10/23/17 18:59 06:59 18:59 Intake Total 480 / 480 Balance 480 / 480 Weight 107.048 kg Intake: Oral 480 / 480 Other: # Voids 2 1 Date of Last Bowel Movement 10/22/17 10/23/17 # Bowel Movements 1 - Constitutional no acute distress - Routine HEENT Exam Head: Present: normocephalic, atraumatic Eye: Present: EOMI, PERRL. 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 it to [employer] later, knows he is in the hospital, EOMI, no facial asymmetry, no drift, no focal deficit, f-n-f intact, gait withheld, speech - no dysarthria, has word finding difficulties, gait withheld, reflexes 1+, toes equiv, tone normal Results - Labs CBC & Chem 7: 10/22/17 17:25 10/22/17 17:25 Labs: Laboratory Results - last 24 hr 10/22/17 10/22/17 10/22/17 17:25 17:25 17:25 WBC 6.5 RBC 5.19 Hgb 14.9 Hct 43.3 MCV 83.5 MCH 28.8 MCHC 34.5 RDW 14.3 Plt Count 214 MPV 7.2 Neut % (Auto) 68.9 Lymph % (Auto) 19.6 Pershing % (Auto) 7.8 Eos % (Auto) 2.9 Baso % (Auto) 0.8 Neut # (Auto) 4.5 Lymph # (Auto) 1.3 Pershing # (Auto) 0.5 Eos # (Auto) 0.2 Baso # (Auto) 0.1 WBC Differential . Differential Comment Auto diff final PT 22.2 H INR 2.2 APTT 36.2 H Sodium Potassium Chloride Carbon Dioxide Anion Gap BUN Creatinine Estimated GFR POC Glucose Random Glucose Lactic Acid 0.8 Calcium Total Bilirubin AST ALT Alkaline Phosphatase Ammonia Total Creatine Kinase Troponin I B-Natriuretic Peptide Total Protein Albumin Triglycerides Cholesterol LDL Cholesterol, Calc HDL Cholesterol Cholesterol/HDL Ratio Urine Color Urine Clarity Urine pH Ur Specific [place] Urine Protein Urine Glucose (UA) Urine Ketones Urine Occult Blood Urine Nitrate Urine Bilirubin Urine Urobilinogen Ur Leukocyte Esterase Urine RBC Ur Squamous Epith Cells Urine Sperm Micro UA Comment Urine Culture Comments 10/22/17 10/22/17 10/22/17 17:25 17:25 17:25 WBC RBC Hgb Hct MCV MCH MCHC RDW Plt Count MPV Neut % (Auto) Lymph % (Auto) Pershing % (Auto) Eos % (Auto) Baso % (Auto) Neut # (Auto) Lymph # (Auto) Pershing # (Auto) Eos # (Auto) Baso # (Auto) WBC Differential Differential Comment PT INR APTT Sodium 143 Potassium 4.1 Chloride 106 Carbon Dioxide 26.8 Anion Gap 10 BUN 19 H Creatinine 1.05 Estimated GFR 68 L POC Glucose Random Glucose 81 Lactic Acid Calcium 9.6 Total Bilirubin 0.5 AST 14 L ALT 15 Alkaline Phosphatase 82 Ammonia 34 H Total Creatine Kinase 58 Troponin I Less than 0.02 L B-Natriuretic Peptide 70 Total Protein 7.3 Albumin 3.4 Triglycerides Cholesterol LDL Cholesterol, Calc HDL Cholesterol Cholesterol/HDL Ratio Urine Color Urine Clarity Urine pH Ur Specific [place] Urine Protein Urine Glucose (UA) Urine Ketones Urine Occult Blood Urine Nitrate Urine Bilirubin Urine Urobilinogen Ur Leukocyte Esterase Urine RBC Ur Squamous Epith Cells Urine Sperm Micro UA Comment Urine Culture Comments 10/22/17 10/22/17 10/23/17 17:43 20:33 02:56 WBC RBC Hgb Hct MCV MCH MCHC RDW Plt Count MPV Neut % (Auto) Lymph % (Auto) Pershing % (Auto) Eos % (Auto) Baso % (Auto) Neut # (Auto) Lymph # (Auto) Pershing # (Auto) Eos # (Auto) Baso # (Auto) WBC Differential Differential Comment PT INR APTT Sodium Potassium Chloride Carbon Dioxide Anion Gap BUN Creatinine Estimated GFR POC Glucose 74 59 L Random Glucose Lactic Acid Calcium Total Bilirubin AST ALT Alkaline Phosphatase Ammonia Total Creatine Kinase Troponin I B-Natriuretic Peptide Total Protein Albumin Triglycerides Cholesterol LDL Cholesterol, Calc HDL Cholesterol Cholesterol/HDL Ratio Urine Color Yellow Urine Clarity Cloudy H Urine pH 5.0 Ur Specific [place] 1.019 Urine Protein 30 H Urine Glucose (UA) Negative Urine Ketones Negative Urine Occult Blood Small H Urine Nitrate Negative Urine Bilirubin Negative Urine Urobilinogen 2.0 H Ur Leukocyte Esterase Negative Urine RBC 15 H Ur Squamous Epith Cells 2 Urine Sperm Many H Micro UA Comment Culture not ind Urine Culture Comments Culture not ind 10/23/17 10/23/17 07:34 09:00 WBC RBC Hgb Hct MCV MCH MCHC RDW Plt Count MPV Neut % (Auto) Lymph % (Auto) Pershing % (Auto) Eos % (Auto) Baso % (Auto) Neut # (Auto) Lymph # (Auto) Pershing # (Auto) Eos # (Auto) Baso # (Auto) WBC Differential Differential Comment PT INR APTT Sodium Potassium Chloride Carbon Dioxide Anion Gap BUN Creatinine Estimated GFR POC Glucose 106 Random Glucose Lactic Acid Calcium Total Bilirubin AST ALT Alkaline Phosphatase Ammonia Total Creatine Kinase Troponin I B-Natriuretic Peptide Total Protein Albumin Triglycerides 119 Cholesterol 98 L LDL Cholesterol, Calc 43 HDL Cholesterol 31.6 L Cholesterol/HDL Ratio 3.10 Urine Color Urine Clarity Urine pH Ur Specific [place] Urine Protein Urine Glucose (UA) Urine Ketones Urine Occult Blood Urine Nitrate Urine Bilirubin Urine Urobilinogen Ur Leukocyte Esterase Urine RBC Ur Squamous Epith Cells Urine Sperm Micro UA Comment Urine Culture Comments - Imaging Impressions Carotid Doppler Study 10/22/17 00:00 CONCLUSION: No significant stenosis is seen. Chest X-Ray 10/22/17 17:00 CONCLUSION: No acute cardiopulmonary disease. Head CT 10/22/17 17:00 CONCLUSION: 1. Stable negative examination with no intracranial hemorrhage or mass effect. Review/Management - Review/Management Plan: MRI and MRA pending UA unremarkable WBC normal Ammonia 34H EEG and ECHO pending CUS pending LDL 98 -on statin will check B12, TSH/T4, folic acid, B1 HgbA1C pending ? encephalopathy related to underlying infection A-fib INR 2.2 on Coumadin Daily Summary: MD note pt seen d/w PA agree with impression and plan. labs and eeg pending. inr therapeutic 2.2.
--- NOTE | 2017-10-23 11:00 | MR ---
EXAM DATE: 10/23/2017 10:54 AM EDT AGE/SEX: 82 years / Male INDICATIONS: CVA. Confusion. CLINICAL DATA: This is the patient's initial encounter. Patient reports that signs and symptoms have been present for 2 days and indicates a pain score of Nonresponsive. MEDICAL/SURGICAL HISTORY: Diabetes mellitus type II. Hypertension. Total knee replacement, rig ht. Total knee replacement, left. [place] [facility] [place]. . TECHNIQUE: Multiplanar, multisequence examination of the brain was performed without contrast. FINDINGS: The study is degraded by motion artifact limiting the sensitivity. Cerebrum: The ventricles are normal for age with mild atrophic change. No evidence of midline shift, mass lesion, hemorrhage or acute infarction. No extraaxial fluid collections are seen. The pituita ry gland and suprasellar cistern are normal in configuration. White Matter: No significant signal abnormalities are seen in the white matter. Posterior Fossa: The cerebellum and brainstem are intact. The 4th ventricle is midline. The cerebel lopontine angle is unremarkable. The cerebellar tonsils are normal in position. Diffusion Imaging: No focal areas of restricted diffusion are seen. No evidence of acute infarction . Extracranial: The visualized portions of the orbits and paranasal sinuses are unremarkable. CONCLUSION: 1. Suboptimal examination secondary to motion artifact. 2. No evidence of acute hemorrhage, mass or infarction. 3. Mild age-appropriate atrophic change. Electronically signed by: Facundo Duran MD 10/23/2017 10:59 AM EDT
--- NOTE | 2017-10-23 11:20 | MR ---
EXAM DATE: 10/23/2017 11:13 AM EDT AGE/SEX: 82 years / Male INDICATIONS: CVA. Confusion. CLINICAL DATA: This is the patient's initial encounter. Patient reports that signs and symptoms have been present for 2 days and indicates a pain score of Nonresponsive. MEDICAL/SURGICAL HISTORY: Diabetes mellitus type II. Hypertension. Total knee replacement, rig ht. Total knee replacement, left. COMPARISON: [facility] – [place] HEAD W/O CONTRAST, 10/23/2017. . TECHNIQUE: 3D [id number] MRA was performed. Source images, multiplanar STS MIP, and 3D volum e MIP reconstructions were reviewed. FINDINGS: The exam is limited secondary to motion artifact which limits the interpretation. Examination of th e M1 segments demonstrates decreased caliber on the right and eighth short segment flow void on left which may reflect significant stenosis. Bolus infused CT angiography of the brain is recommended for further evaluation. The skull base vessels are intact. Examination of the posterior fossa demonstrate s codominant vertebral arteries. There is poor visualization of the P1 segment on the right which als o may reflect intracranial vascular disease. CONCLUSION: Limited examination secondary to motion with potentially significant intracranial vascular disease in volving both the anterior posterior circulation. Bolus infused CT angiography of the brain is recomme nded for further evaluation. Electronically signed by: Mihir James MD 10/23/2017 11:18 AM EDT
[2017-10-23 13:04] LABS: INR 1.7 Ratio; Prothrombin Time 17.7 sec (9.8-11.6)
--- NOTE | 2017-10-23 15:31 | XR ---
EXAM DATE: 10/23/2017 1:56 PM EDT AGE/SEX: 82 years / Male INDICATIONS: Left shoulder pain. Unable to obtain history from patient. CLINICAL DATA: This is the patient's initial encounter. Patient reports that signs and symptoms have been present for 1 day and indicates a pain score of Nonresponsive. MEDICAL/SURGICAL HISTORY: . Diabetes mellitus type II. Hypertension. Total knee replacement, r ight. Total knee replacement, left. . [place] [facility] [place] (>2VWS[place]/19/2017. . FINDINGS: Bony structures are intact and in normal alignment. Joints are intact without dislocation or signifi cant arthropathy. Osseous density is normal. Soft tissues are unremarkable. No radiopaque foreign bodies seen. CONCLUSION: Negative examination of the shoulder. Electronically signed by: Mihir James MD 10/23/2017 3:29 PM EDT
[2017-10-23] MEDS: Sod Chloride 0.9% Inj 1,000 ML IV.CONT SCH (16:08)
[2017-10-23 16:41] LABS: Free T4 (Free Thyroxine) 1.3 ng/dL (0.76-1.46); Thyroid Stimulating Hormone 1.49 uIU/mL (0.358-3.740)
[2017-10-23 17:47] LABS: Hemoglobin A1c 5.6 % (4.3-6.0)
--- NOTE | 2017-10-23 18:58 | ECG ---
Date Performed: 10/22/2017 Time Performed: 17:13:38 PTAGE: 82 years EKG: ATRIAL FIBRILLATION WITH SLOW VENTRICULAR RESPONSE WITH VENTRICULAR PREMATURE COMPLEXES ABN ORMAL RHYTHM ECG PREVIOUS TRACING : 06/19/2017 22.01 Compared to previous tracing, rate slower DOCTOR: Karie Hou Interpretating Date/Time 10/23/2017 18:58:34
[2017-10-24] MEDS: Insulin NovoLIN Regular Correctional Sugar Inj SQ SCH ×5 (03:40→21:14)
[2017-10-24] MEDS: Sod Chloride 0.9% Inj 1,000 ML IV.CONT SCH (04:49)
[2017-10-24 04:51] LABS: Amphetamine Screen,Urine Neg (Neg); Barbiturate Screen,Urine Neg (Neg); Cannabinoid Screen,Urine Neg (Neg); Cocaine Screen,Urine Neg (Neg); Opiate Screen,Urine Neg (Neg)
[2017-10-24] MEDS: Pantoprazole Sodium 20 MG DR Tablet PO SCH (09:18)
[2017-10-24] MEDS: Triamterene/HCTZ 37.5 MG/25 MG Tablet PO SCH (09:18)
[2017-10-24] MEDS: Lisinopril 5 MG Tablet PO SCH (09:18)
--- NOTE | 2017-10-24 11:14 | MG ---
cc: Mihir Goodman MD DATE: 10/24/2017 EEG RECORDING NUMBER: [id number] INDICATIONS: Blurry vision, trouble getting his words out, atrial fibrillation, heparin. DESCRIPTION: Diffuse 6 Hz slowing is noted. Recording overall is synchronous and symmetric. Hyperventilation not performed. A lot of muscle artifact is seen. He is noted to be snoring. Photic stimulation performed without significant posterior driving. IMPRESSION: Diffuse 6 Hz slowing consistent with a mild to moderate diffuse encephalopathy, but no focal abnormality was noted. No seizure activity seen. The patient was noted to be a snorer. Mihir Goodman MD DJM/jn/ll , 07:47 AM , 07:52 AM
--- NOTE | 2017-10-24 13:25 | P.PN ---
Subjective Interval history: F/U ams. Feeling better. No confusion. Denies hallucination though he did see smoke this am Physical Exam Vital signs: Vital Signs 10/23/17 16:00 10/23/17 16:03 10/23/17 20:00 Temperature 97.7 F 97.9 F Pulse Rate 62 84 71 Respiratory Rate 20 15 Blood Pressure 145/82 H 115/66 Pulse Oximetry 97 97 10/23/17 23:35 10/24/17 03:45 10/24/17 07:55 Temperature 98.1 F Pulse Rate 60 56 L Respiratory Rate 16 Blood Pressure 129/83 Pulse Oximetry 97 94 L 10/24/17 08:00 10/24/17 12:00 Temperature 98.1 F 97.9 F Pulse Rate 77 75 Respiratory Rate 16 16 Blood Pressure 143/67 H 130/62 Pulse Oximetry 96 97 Intake & Output 10/23/17 10/24/17 10/24/17 18:59 06:59 18:59 Intake Total 1720 / 1720 1480 / 1480 Balance 1720 / 1720 1480 / 1480 Intake: IV 1000 / 1000 1000 / 1000 NS Inj 1,000 ML @ 70 mls/hr IV. 1000 / 1000 1000 / 1000 CONT .[id number] AISLINN Rx#:[id number] Oral 720 / 720 480 / 480 Other: # Voids 1 3 Date of Last Bowel Movement 10/23/17 10/23/17 # Bowel Movements 1 1 Narrative: Gen.: No acute distress Cardiovascular: Regular rate and irregularly irregular rhythm. 3/6 URIEL Respiratory: Lungs clear to auscultation bilaterally. No wheezes or rhonchi. Abdomen: Soft, nontender, nondistended. No peritoneal signs. Musculoskeletal: No gross deformities. No edema. Skin: No obvious rashes or erythema. 2 x 2 cm fluctuance sternal area - decreasing per family Neuro: Sensory intact. Cranial nerves II through XII intact. 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 Follows commands. Alert and oriented to self, others, place and year. Results - Labs CBC & Chem 7: 10/22/17 17:25 10/22/17 17:25 Laboratory Results - last 24 hr 10/23/17 10/23/17 10/23/17 07:34 12:21 12:21 POC Glucose Hemoglobin A1c 5.6 Vitamin B12 380 Folate TSH 1.490 Free T4 1.30 Urine Opiates Screen Ur Barbiturates Screen Ur Amphetamines Screen U Benzodiazepines Scrn Urine Cocaine Screen U Cannabinoids Screen 10/23/17 10/23/17 10/23/17 12:21 18:06 20:23 POC Glucose 90 105 Hemoglobin A1c Vitamin B12 Folate 14.7 TSH Free T4 Urine Opiates Screen Ur Barbiturates Screen Ur Amphetamines Screen U Benzodiazepines Scrn Urine Cocaine Screen U Cannabinoids Screen 10/24/17 10/24/17 10/24/17 03:51 04:15 07:49 POC Glucose 148 H 140 H Hemoglobin A1c Vitamin B12 Folate TSH Free T4 Urine Opiates Screen Neg Ur Barbiturates Screen Neg Ur Amphetamines Screen Neg U Benzodiazepines Scrn Neg Urine Cocaine Screen Neg U Cannabinoids Screen Neg 10/24/17 12:05 POC Glucose 180 H Hemoglobin A1c Vitamin B12 Folate TSH Free T4 Urine Opiates Screen Ur Barbiturates Screen Ur Amphetamines Screen U Benzodiazepines Scrn Urine Cocaine Screen U Cannabinoids Screen - Imaging Impressions Shoulder X-Ray 10/23/17 00:00 CONCLUSION: - Procedures none Assessment and Plan - Assessment (1) Delirium Code(s): R41.0 - Disorientation, unspecified Status: Acute - Plan 1. Encephalopathy likely toxic. Patient was recently started on Zoloft which has been discontinued. Clinically he is improving. CT head negative for acute process MRI/MRA , EEG and UDS negative Carotid ultrasound negative Patient with neurologic symptoms at this time Neurology consulted, appreciate recommendations Neuro checks PT and ST eval 2. Atrial fibrillation Continue anticoagulation with warfarin Continue home metoprolol 3. Hypertension Resume antihypertensives 4. Diabetes mellitus Holding home antihyperglycemic Sliding-scale insulin Monitor blood glucose FEN Cardiac diet NS at 70 cc/hour dc if tolerating po Electrolytes: Monitor and replete as needed Coumadin Discharge Planning: Possible discharge tomorrow with home care if he remains stable
--- NOTE | 2017-10-24 15:04 | P.DCO ---
- Physical Therapy Order: Evaluate and treat, Improve ambulation, Strength and gait training - Home Health Nursing Order: Medical education, Medication education-adverse effect - Certification I have seen patient Gavin Lui on 10/24/17. My clinical findings support the need for the requested home health care services because: Deconditioned with increased weakness I certify that my clinical findings support that this patient is homebound because: Need for psychosocial assistance
[2017-10-24 15:14] LABS: INR 1.9 Ratio; Prothrombin Time 19.3 sec (9.8-11.6)
[2017-10-25] MEDS: Sod Chloride 0.9% Inj 1,000 ML IV.CONT SCH (00:57)
[2017-10-25] MEDS: Insulin NovoLIN Regular Correctional Sugar Inj SQ SCH ×2 (03:29→09:13)
[2017-10-25] MEDS: Pantoprazole Sodium 20 MG DR Tablet PO SCH (08:44)
[2017-10-25] MEDS: Lisinopril 5 MG Tablet PO SCH (08:44)
[2017-10-25] MEDS: Triamterene/HCTZ 37.5 MG/25 MG Tablet PO SCH (08:45)
[2017-10-25 10:06] LABS: Prothrombin Time 20.6 sec (9.8-11.6)
--- NOTE | 2017-10-25 11:18 | P.DS ---
Date of admission: 10/22/17 19:23 Primary care physician: Aleena Demarco MD Brief History from admission: 82-year-old male with a past medical history significant for atrial fibrillation anticoagulated on Coumadin, hypertension and diabetes mellitus presents to the emergency department for the evaluation of altered mental status. The patient's provides the history. She reports that they saw his primary care doctor on which was the last time the patient was seen normal. He was prescribed amoxicillin for an infected cyst on his chest that has been present for years. The patient then developed anorexia and fatigue later that day. Per the , the patient will not eat and does not want to get out of bed. Yesterday he began having visual hallucinations thinking that someone was in the bathroom or being disoriented and confused about where he is and what floor he is on. During her interview the patient is alert and oriented to person, and place. He does not know the year. He denies any pain. No chest pain or shortness of breath. No abdominal pain. No nausea/ vomiting/diarrhea. No fevers/chills. DS: Diagnosis - Discharge Diagnosis (1) Delirium Status: Acute DS: Summary Hospital Course: 1. Encephalopathy likely toxic. Patient was recently started on Zoloft which has been discontinued. Clinically he is improving. CT head negative for acute process MRI/MRA , EEG and UDS negative Carotid ultrasound negative Patient with neurologic symptoms at this time Neurology consulted, appreciate recommendations Neuro checks PT and ST ff 2. Atrial fibrillation Continue anticoagulation with warfarin Continue home metoprolol 3. Hypertension Resume antihypertensives 4. Diabetes mellitus Sliding-scale insulin Monitor blood glucose DVT proph with Coumadin - Time Spent with Patient Total time spent providing and/or coordinating discharge services: - Quality: VTE Deep Vein Thrombosis/Pulmonary Embolism Present on Admission: No Exam Vital signs: Vital Signs 10/24/17 11:50 10/24/17 12:00 10/24/17 16:00 Temperature 97.9 F 97.5 F L Pulse Rate 67 75 72 Respiratory Rate 16 16 Blood Pressure 130/62 154/92 H Pulse Oximetry 97 91 L 10/24/17 19:57 10/24/17 20:00 10/24/17 23:30 Temperature 98.0 F 97.8 F Pulse Rate 68 74 60 Respiratory Rate 17 17 Blood Pressure 121/67 135/64 Pulse Oximetry 95 96 10/25/17 03:54 10/25/17 09:02 10/25/17 10:24 Temperature 98.2 F 98.2 F Pulse Rate 85 68 63 Respiratory Rate 17 18 Blood Pressure 130/62 148/78 H Pulse Oximetry 95 Intake & Output 10/24/17 10/25/17 10/25/17 18:59 06:59 18:59 Intake Total 1000 / 1000 Balance 1000 / 1000 Intake: IV 1000 / 1000 NS Inj 1,000 ML @ 70 mls/hr IV. 1000 / 1000 CONT .[id number] [facility] Rx#:[id number] Other: Date of Last Bowel Movement 10/23/17 Narrative: Gen.: No acute distress Cardiovascular: Regular rate and irregularly irregular rhythm. 3/6 URIEL Respiratory: Lungs clear to auscultation bilaterally. No wheezes or rhonchi. Abdomen: Soft, nontender, nondistended. No peritoneal signs. Musculoskeletal: No gross deformities. No edema. Skin: No obvious rashes or erythema. 1 x 1 cm fluctuance sternal area - decreasing per family Neuro: Sensory intact. Cranial nerves II through XII intact. 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 Follows commands. Alert and oriented to self, others, place and year. Results Procedures completed during hospitalization: none Labs on day of discharge: Labs from last 24 hours 10/25/17 10/25/17 10/25/17 09:20 09:12 03:04 PT 20.6 H INR 2.0 POC Glucose 115 H 107 Thiamine 10/24/17 10/24/17 10/24/17 20:30 17:17 14:12 PT 19.3 H INR 1.9 POC Glucose 158 H 106 Thiamine 10/24/17 10/23/17 12:05 12:27 PT INR POC Glucose 180 H Thiamine 167 - Impressions ITS Impressions Carotid Doppler Study 10/22/17 00:00 CONCLUSION: No significant stenosis is seen. Chest X-Ray 10/22/17 17:00 CONCLUSION: No acute cardiopulmonary disease. Head CT 10/22/17 17:00 CONCLUSION: 1. Stable negative examination with no intracranial hemorrhage or mass effect. Shoulder X-Ray 10/23/17 00:00 CONCLUSION: Negative examination of the shoulder. Head MRI 10/23/17 19:31 CONCLUSION: 1. Suboptimal examination secondary to motion artifact. 2. No evidence of acute hemorrhage, mass or infarction. 3. Mild age-appropriate atrophic change. Head MRA 10/23/17 19:31 CONCLUSION: Limited examination secondary to motion with potentially significant intracranial vascular disease involving both the anterior posterior circulation. Bolus infused CT angiography of the brain is recommended for further evaluation. Discharge Plan - Discharge Disposition Patient Disposition: /Home Health Service - Discharge Condition Condition: Stable - Discharge Order Discharge Orders: Discharge Order (Routine); Ordered 10/25/17 Ordered By: Immanuel Hu - Physicians Team Primary Care Provider: Aleena Demarco Attending Provider: Immanuel Hu Other Providers: Akua Castro MD ; Armando Soriano MD
== END 2017-10-25 12:21 | disposition home health service (06) ==
LOC: NEDA 16:06 → NEPC 16:06 → NEPGCP 16:06
PROVIDERS: ADMIT Internal Medicine; ATTEND Internal Medicine
DX: R09.89 Other specified symptoms and signs involving the circulatory and respiratory systems; J34.1 Cyst and mucocele of nose and nasal sinus; I10 Essential (primary) hypertension; Z79.01 Long term (current) use of anticoagulants; E11.9 Type 2 diabetes mellitus without complications; G47.30 Sleep apnea, unspecified; M25.511 Pain in right shoulder; I48.91 Unspecified atrial fibrillation; F17.200 Nicotine dependence, unspecified, uncomplicated; G93.40 Encephalopathy, unspecified; Z79.899 Other long term (current) drug therapy